=== PATIENT | female | born 1965 | race Caucasian/White ===

== ENCOUNTER → 2017-01-04 16:53 | Outpatient (CLI) | payer MEDICAID ==
[2015-01-09 06:24] VITALS: BMI 29.8
[~2017-01-04 16:53] MED LIST: ADVAIR 250/501 DISK INH; BENADRYL25 MG PO; EFFEXOR37.5 MG PO; PRILOSEC20 MG PO; SINGULAIR10 MG PO; SYNTHROID25 MCG PO; TENORMIN50 MG PO
== END | disposition home or self-care (01) ==
LOC: D.MAMMO 15:45
DX: Z12.31 Encounter for screening mammogram for malignant neoplasm of breast (principal)

== ENCOUNTER 2018-02-27 11:34 | Emergency (ER) | payer OTHER ==
[~2018-02-27] VITALS: Ht 170.2 cm; Wt 90.9 kg
--- NOTE | ~2018-02-27 | HEMODYNAMI ---
PATIENT:LILY SMITH MEDICAL RECORD: [id number] : 67 LOCATION:[facility] ADMISSION DATE: 02/27/18 Generatedon:02/27/201815:09 Patient name: LILY SMITH Patient #: [id number] SSN: [id number] B: 1965 Date of study: 02/27/2018 Page: Of Hemodynamic Procedure Report Patient Data Patient Demographics Procedure consent was obtained First Name: LILY Gender: Female Last Name: SARAH : 1965 Middle Initial: M Age: 52 year(s) Patient #: [id number] Race: Unknown Additional ID: [id number] Contact details Address: [address] [place] [address] State: [place] City: [place] Zip code: [address] Admission Admission Data Admission Date: 02/27/2018 Admission Time: 11:34 Procedure Procedure Types Cath Procedure Diagnostic Procedure PPM/ICD Permanent Pacer Generator Exg. Sedation Charges Moderate Sedation up to 30 minutes Procedure Description Procedure Date Procedure Date: 02/27/2018 Procedure Start Time: 14:49 Procedure End Time: 15:07 Procedure Staff Name Function Pb Rios MD Assisting physician Jany Agustin RT Monitor Natalia Coley RT Scrub Jamel Yeager RN Nurse Matt Rosen MD Performing Physician Procedure Data Cath Procedure Fluoroscopy Diagnostic fluoroscopy Total fluoroscopy Time: 0 time: 0 min min Diagnostic fluoroscopy Total fluoroscopy dose: 0 dose: 0 mGy mGy Contrast Material Contrast Material Type Amount (ml) Isovue 300 0 Estimated blood loss: 5 ml Procedure Complications No complications Procedure Medications Medication Administration Route Dosage 0.9% NaCl I.V. 100 ml/hr Oxygen etCO2 Nasal cannula 2 l/min Lidocaine 1% added to field 20 Ancef (1Gm/50ml NS) I.V.P.B 1 g Ancef Irrigation 1 g (1gm/500ml NS) Versed I.V. 2 mg Fentanyl I.V. 100 mcg Versed I.V. 2 mg Fentanyl I.V. 100 mcg Hemodynamics Rest Heart Rate: 58 (bpm) Snapshots Pre Cath Intra NCS Post Cath Vital Signs Time Heart Resp SPO2 etCO2 NIBP (mmHg) Rhythm Pain Sedation Rate (ipm) (%) (mmHg) Status Level (bpm) 14:34:30 70 25 100 27 132/71(96) NSR 0 (11) 10(A) , No pain 14:38:39 66 10 100 18.8 132/70(91) NSR 0 (11) 10(A) , No pain 14:42:53 66 18 99 20.3 123/70(86) NSR 0 (11) 10(A) , No pain 14:47:05 68 15 98 23.3 119/69(92) NSR 0 (11) 10(A) , No pain 14:51:19 69 16 98 24 119/60(84) NSR 0 (11) 10(A) , No pain 14:55:31 55 17 99 27 125/69(95) NSR 0 (11) 10(A) , No pain 14:59:43 59 12 100 30.8 124/75(103) NSR 0 (11) 10(A) , No pain 15:03:55 59 13 100 27.8 134/75(94) NSR 0 (11) 10(A) , No pain 15:08:11 60 13 100 0 132/72(97) NSR 0 (11) 10(A) , No pain Medications Time Medication Route Dose Verified Delivered Reason Notes Effectiv eness by by 14:37:02 0.9% NaCl I.V. 100 Jamel Jamel Per ml/hr Toy Yeager physician RN RN 14:37:10 Oxygen etCO2 2 Jamel Jamel Per Nasal l/min Toy Yeager physician cannula RN RN 14:37:25 Lidocaine added 20ml Jamel Jamel for local 1% to vial Lorigan Lorigan anesthetic field RN RN 14:37:40 Ancef I.V.P.B 1 g Jamel Jamel Per (1Gm/50ml Toy Yeager physician NS) RN RN 14:38:11 Ancef Topical 1 g Jamel Jamel used for Irrigation added Toy Yeager procedure (1gm/500ml to RN RN NS) field 14:45:56 Versed I.V. 2 mg Jamel Jamel for Lorigan Lorigan sedation RN RN 14:46:05 Fentanyl I.V. 100 Jamel Jamel for mcg Lorigan Lorigan sedation RN RN 14:48:20 Versed I.V. 2 mg Jamel Jamel for Lorigan Lorigan sedation RN RN 14:48:28 Fentanyl I.V. 100 Jamel Jamel for mcg Lorigan Lorigan sedation RN multiple resaw operator Log Time Note 14:: Diagnostic Cath Status : Elective 14:09:29 Jamel Yeager RN sent for patient. Start room use. 14::30 Time tracking: Regular hours (M-F 7:00 - 5:00) 14:09:35 Plan of Care:Hemodynamics will remain stable., Cardiac rhythm will remain stable., Comfort level will be maintained., Respiratory function will remain adequate., Patient/ family verbilizes understanding of procedure., Procedure tolerated without complication., Recovers from procedure without complications.. 14:22:36 Patient received from ED to CCL 2 Alert and oriented. Tansferred to table in Supine position. 14:22:37 Warm blankets applied, and martinez hugger turned on for patient comfort. 14:22:38 Correct patient and procedure confirmed by team. 14:22:39 Signed procedure consent form obtained from patient. 14:22:40 ECG and BP/O2 sat monitors applied to patient. 14:29:20 Vital chart was started 14:29:21 Baseline sample Acquired. 14:29:23 Rhythm: paced 14:29:24 Full Disclosure recording started 14:29:28 H&P Date Dictated: 02/27/2018 Within 30 days and on chart., H&P Addendum completed by physician on day of procedure. (MUST COMPLETE FOR ALL OUTPATIENTS). 14:29:29 Pre-procedure instructions explained to patient. 14:29:30 Pre-op teaching completed and patient verbalized understanding. 14:29:32 Family in patients room. 14:29:36 Patient NPO since Midnight. 14:29:37 Is the patient allergic to Iodine/contrast media? No. 14:29:38 Was the patient premedicated? No 14:29:39 Is patient on blood thinner?No 14:29:40 Patient diabetic? No. 14:29:42 Previous problem with sedation/anesthesia? No ? 14:29:44 Snore? Yes 14:29:45 Sleep apnea? No 14:29:46 Deviated septum? No 14:29:47 Opens mouth fully? Yes 14:29:48 Sticks out tongue? Yes 14:29:52 Airway obstruction? Yes asthma 14:29:55 Dentures? No ? 14:29:58 Pre procedure: right dorsailis pedis pulse 2+ Normal; easily identifiable; not easily obliterated 14:30:00 Pre procedure: left dorsailis pedis pulse 2+ Normal; easily identifiable; not easily obliterated 14:30:02 Patient pain scale 0/10 ?. 14:30:07 IV patent on arrival in left forearm with 0.9% NaCl at [facility]. 14:30:14 Lab results completed and on chart. 14:30:22 Left chest area was prepped with chlora-prep and draped in sterile fashion 14:30:23 Alarms reviewed by R. N. 14:30:23 Sharps counted by scrub and verified by R.N. 14:31:55 Use device set FLORES PPM 14:32:02 2-0 Ticron Multipack ([id number]) opened to sterile field. 14:32:02 3-0 Vicryl Single Pack [id number] opened to sterile field. 14:32:04 5-0 Monocryl PS2 [id number] opened to sterile field. 14:32:05 Cautery Tip Cow Tender opened to sterile field. 14:32:05 Cautery Pushbutton Pencil opened to sterile field. 14:32:13 Immobilizer Extra Large opened to sterile field. 14:32:25 Medtronic corporate sales representative nikko carlos present for procedure. 14:37:02 0.9% NaCl 100 ml/hr I.V. was administered by Jamel Yeager RN; Per physician; 14:37:10 Oxygen 2 l/min etCO2 Nasal cannula was administered by Jamel Yeager RN; Per physician; 14:37:25 Lidocaine 1% 20ml vial added to field was administered by Jamel Yeager RN; for local anesthetic; 14:37:40 Ancef (1Gm/50ml NS) 1 g I.V.P.B was administered by Jamel Yeager RN; Per physician; 14:38:11 Ancef Irrigation (1gm/500ml NS) 1 g Topical added to field was administered by Jamel Yeager RN; used for procedure; 14:41:01 Physician paged 14:45:29 Physician arrived 14:45:29 --------ALL STOP TIME OUT------ 14:45:30 Final Timeout: patient, procedure, and site verified with staff and physician. All members of the team are in agreement. 14:45:34 Left chest site verified by team. 14:45:39 Physical assessment completed. ASA score P 2 - A patient with mild systemic disease as per Pb Rios MD. 14:45:42 Sedation plan: IV Moderate Sedation Medication:Versed, Fentanyl 14:45:53 Grounding pad site Left thigh. 14:45:56 Versed 2 mg I.V. was administered by Jamel Yeager RN; for sedation; 14:46:05 Fentanyl 100 mcg I.V. was administered by Jamel Yeager RN; for sedation; 14:46:12 Pre sharps counted by scrub and verified by RN: Sutures: 7; Sponges: 5; Stick needles: 2; Skin needles: 2; Blade: 1; Cautery: 1 14:46:13 Grounding pad site free from injury. 14:46:45 [employer] MRI PPM Dual Generator [id number] opened to sterile field. 14:48:20 Versed 2 mg I.V. was administered by Jamel Yeager RN; for sedation; 14:48:28 Fentanyl 100 mcg I.V. was administered by Jamel Yeager RN; for sedation; 14:48:30 Procedure started. 14:49:17 Lidocaine 1% was administered to left subclavicular area by Pb Rios MD . 14:49:19 Incision made to left subclavicular area. 14:49:27 Generator pocket made/opened. 14:53:40 PPM Dual was removed.. 14:53:54 PPM Dual was attached to lead(s) and inserted into pocket. 14:54:03 Generator was sutured in place with 2-0 ticron. 14:55:49 Device pocket was irrigated with Ancef. 14:57:17 Subcutaneous closure was completed with 3-0 vicryl plus. 14:59:55 Skin closure was completed with 5-0 monocryl. 15:04:20 Parameters--Ventricular P/R Wave: 10.2mV. Current: 0.3mA; Threshold: 0.5V; Impedence: 1100OHMS. 15:04:58 Parameters--Atrial P/R Wave: 3.1mV. Current: 0.1mA; Threshold: 0.5V; Impedence: 650OHMS. 15:05:02 Lt Chest incision was dressed with Mepilex dressing. 15:06:24 Procedure ended.(Physican Out) 15:06:32 Fluoroscopy time 00.00 minutes. 15:06:34 Fluoroscopy dose: 0 mGy 15:06:34 Flurop Dose total: 0 15:06:37 Contrast amount:Isovue 300 0ml. 15:06:38 Sharps counted by scrub and verified by R.N. 15:06:49 Post-op/insertion site Left Chest area dressed using a Mepilex dressing. 15:06:52 Post Procedure Pulses reassessed and unchanged 15:06:55 Post procedure rhythm: paced 15:06:57 Estimated blood loss: 5 ml 15:06:58 Post procedure instruction explained to patient.Patient verbalizes understanding. 15:06:59 Patient needs reinforcement of post procedure teaching. 15:07:25 Procedure type changed to Cath procedure, Diagnostic procedure, PPM/ICD, Permanent Pacer Generator Exg., Sedation Charges, Moderate Sedation up to 30 minutes 15:07:26 Procedure and supply charges have been captured, reviewed, submitted and are correct. 15:07:31 Procedure Complication : No complications 15:07:33 Vital chart was stopped 15:07:33 See physician's report for complete and final results. 15:07:37 Report given to Pre/Post Procedure Room. 15:07:39 Patient transfered to Pre/Post Procedure Room with Stretcher. 15:07:41 Procedure ended. 15:07:41 Full Disclosure recording stopped 15:07:46 End room use (Document Last) Device Usage Item Name Manufacture Quantity Catalog Hospital Part Current Minimal Lot# / Number Charge Number Stock Stock Serial# Code 2-0 Ticron Ethicon 7 [id number] 5 Multipack ([id number]) 3-0 Vicryl Ethicon 1 [id number] 5 Single Pack [id number] 5-0 Monocryl Ethicon 1 [id number] [id number] 5 PS2 [id number] Cautery Tip Microtek 1 [id number] [id number] 202048 110796 5 [employer] Cautery Microtek 1 [id number] [id number] 5 [facility] Pencil Immobilizer Cardinal 1 [id number] 5 Extra [facility] Medtronic Medtronic 1 [id number] 5 [id number] Advisa MRI EXP PPM Dual 06-29-2019 Generator [id number] Signature Audit [place] Stage Time Signature Unsigned Intra-Procedure 02/27/2018 Jany Agustin 3:09:07 PM RT(R) Signatures Monitor : Jany Agustin RT Signature : Date : Time : [address] [id number]
[2018-02-27 11:39] VITALS: Ht 170.2 cm; Wt 90.9 kg
[2018-02-27] MEDS ORDERED: TENORMIN50 MG PO (11:41)
[2018-02-27] MEDS ORDERED: SYNTHROID100 MCG PO (11:42)
[2018-02-27] MEDS ORDERED: EFFEXOR37.5 MG PO (11:42)
[2018-02-27] MEDS ORDERED: LIPITOR10 MG PO (11:42)
[2018-02-27] MEDS ORDERED: KLONOPIN0.5 MG PO (11:43)
[2018-02-27] MEDS ORDERED: BREO ELLIPTA 11 EACH INH (11:43)
[2018-02-27] MEDS ORDERED: SINGULAIR10 MG PO (11:43)
[2018-02-27] MEDS ORDERED: ZYRTEC10 MG PO (11:43)
[2018-02-27] MEDS ORDERED: FLUTICASONE PRO16 GM NASAL (11:43)
[2018-02-27] MEDS ORDERED: [UNRECOGNIZED DRUG - OTHER] (11:44)
[2018-02-27 12:12] LABS: BASOPHILS 0.5 % (0-2); EOSINOPHILS 1.5 % (0-7); HEMATOCRIT 40.3 % (36.0-48.0); HEMOGLOBIN 13.5 g/dL (12-16); IMMATURE GRANULOCYTES 0.2 % (0-5); LYMPHOCYTES 40.2 % (15-50); MCH 29.9 pg (26.0-34.0); MCHC 33.5 g/dL (31.0-37.0); MCV 89.2 fL (80.0-100.0); MEAN PLATELET VOLUME 11.2 fL (7.4-10.4); MONOCYTES 9.7 % (2-11); NEUTROPHILS 47.9 % (40-80); PLATELET COUNT 210 10x3/uL (130-400); RBC 4.52 10x6/uL (4.00-5.40); RDW 13.4 % (11.5-14.5); WBC 6.1 10x3/uL (4.8-10.8)
[2018-02-27 12:19] LABS: APTT 28.6 SECONDS (22.8-39.4); INR 0.98 (0.85-1.17); PROTIME 12.5 SECONDS (11.6-15.0)
[2018-02-27 12:22] LABS: ALBUMIN 3.5 g/dL (3.4-5.0); ALKALINE PHOSPHATASE 60 U/L (46-116); ALT (SGPT) 18 U/L (10-68); BILIRUBIN - TOTAL 0.56 mg/dL (0.2-1.3); CALC OSMOLALITY 280 mosm/kg (275-300); CALCIUM 8.6 mg/dL (8.5-10.1); CARBON DIOXIDE 27.2 mmol/L (21.0-32.0); CHLORIDE - SERUM 106 mmol/L (98-107); CREATININE - SERUM 0.8 mg/dL (0.6-1.3); GLUCOSE 102 mg/dL (74-106); POTASSIUM - SERUM 3.7 mmol/L (3.5-5.1); PROTEIN - SERUM 7.2 g/dL (6.4-8.2); SODIUM 140 mmol/L (136-145); UREA NITROGEN 19 mg/dL (7-18); eGFR NON AFRICAN AMERICAN 80 mL/min (90-120)
[2018-02-27 12:34] LABS: CREATINE KINASE 78 UL (21-215); TROPONIN-I < 0.017 ng/mL (0.000-0.060)
[2018-02-27 14:33] VITALS: BP 92/62
[2018-02-27] MEDS ORDERED: ULTRAM50 MG PO (15:08)
[2018-02-27] MEDS ORDERED: BEPREVE10 ML EACH EYE (16:14)
== END 2018-02-27 14:14 | disposition other institution (70) ==
LOC: D.ER 11:34
PROVIDERS: Emergency Medicine
DX: I49.3 Ventricular premature depolarization (principal); F41.9 Anxiety disorder, unspecified; R07.89 Other chest pain; I10 Essential (primary) hypertension